=== PATIENT | male | born 1965 | race Two or more races ===

== ENCOUNTER 2021-02-04 00:19 | Emergency (ER) | payer SELFPAY ==
[2021-02-04] VITALS (7 sets, daily range): BP systolic 89–124; BP diastolic 58–77; PULSE 70–92; RESP 14–20; TEMP 36.4–36.6; O2SAT 96–100; BMI 25.1
--- NOTE | 2021-02-04 | ECG_ITS ---
Test Reason : HYPERGLYCEMIA Blood Pressure : / mmHG Vent. Rate : 074 BPM Atrial Rate : 074 BPM P-R Int : 138 ms QRS Dur : 088 ms QT Int : 376 ms P-R-T Axes : 055 014 032 degrees QTc Int : 417 ms Normal sinus rhythm Normal ECG No previous ECGs available Referred By: Generic ED Physician Electronically Signed By:HARSHAD ROJAS MD
--- NOTE | ~2021-02-04 | CT_ITS ---
EXAMINATION: CT HEAD W/O IV CONTRAST CT CERVICAL SPINE W/O IV CONTRAST CLINICAL INFORMATION: Fall and head injury. COMPARISON: None TECHNIQUE: Head - Contiguous axial imaging of the head was performed from the skull base to the vertex without the administration of intravenous contrast, and axial images are reconstructed at 2 mm and 5 mm slice thickness. Cervical spine - A volumetric, helical CT acquisition of the cervical spine was obtained without contrast; in addition to the standard set of axial images, multiplanar reformatted images were provided in the coronal and sagittal imaging planes. This CT examination was performed using dose optimization techniques as appropriate, variously including the following: *Automated exposure control *Adjustment of mA and/or kV according to patient size (this includes techniques or standardized protocols for targeted exams where dose is matched to indication/reason for exam; i.e. extremities or head) *Use of iterative reconstruction technique DLP: 1261 mGy-cm (total) FINDINGS: HEAD: Atherosclerotic calcification of cavernous carotid arteries and right vertebral artery. Patchy and confluent hypoattenuation within supratentorial white matter is compatible with sequela of chronic moderate microangiopathy. The whiting-white matter differentiation is maintained. No evidence of an acute major vascular territory infarction, intracranial hemorrhage, extra-axial fluid collection, focal mass effect or midline shift. Mild parenchymal volume loss with commensurate prominence of ventricles and sulci; no hydrocephalus. The brainstem and cerebellum are unremarkable. There is mild thickening of the galea aponeurotica of the posterior scalp; the chronicity of this is uncertain. Given history of fall and head injury, this might represent recent onset hematoma. No calvarial fracture. The paranasal sinuses, mastoid air cells and middle ear cavities are well aerated. The orbits and globes are unremarkable. The temporomandibular joints are normal. CERVICAL SPINE: The craniocervical junction is normal. The occipital condyles, dens and atlantodental articulation are intact. The vertebral body heights and alignment are maintained. No fractures in the anterior or posterior elements. No prevertebral soft tissue swelling. Moderate degenerative loss of disc space, endplate irregularity, vertebral osteophyte formation and uncovertebral joint hypertrophy at C5-C6 and C6-C7. The uncovertebral joint hypertrophy causes moderate-to severe right-sided neural foraminal stenosis at C5-C6 and C6-C7. There is moderate left-sided neural foraminal stenosis at C6-C7. At C4-C5, there appears to be a central disc herniation that indents the ventral surface of the thecal sac and narrows the central spinal canal to approximately 0.6 cm AP dimension. Posterior disc-osteophyte complexes cause eccentric stenosis of the central spinal canal at C5-C6 and C6-C7. There is somewhat patchy hyperdense tissue thickening in the subcutaneous compartment of the posterior neck. This has the appearance of edema and hemorrhage within the subcutaneous tissues, but there is no focal discrete collection. The lung apices are unremarkable. Thyroid gland is normal. CT/CT cervical spine wo con IMPRESSION: * The thickening of the galea aponeurotic of the posterior scalp could represent acute scalp hematoma. The underlying calvarium is intact and there is no intracranial hemorrhage. * The patchy and confluent hypoattenuation within supratentorial matter is compatible with sequela of chronic moderate microangiopathy. * No acute fracture or malalignment of the degenerated cervical spine. There is degenerative disease, central canal stenosis and neural foraminal stenosis at C5-C6 and C6-C7. * There appears to be edema and hemorrhage in the subcutaneous compartment of the posterior neck.
[2021-02-04 00:38] LABS: Glucose, Whole Blood 314 mg/dL (60-115)
[2021-02-04] MEDS: 0.9 % Sodium Chloride 1,000 ML 999 ML IV (00:59)
[2021-02-04 01:00] LABS: MANUAL DIFF FLAG NO
[2021-02-04 01:01] LABS: Basophils Percent Auto 0.2 % (0-2); Eosinophils Absolute Auto 0.2 X10*3/uL (0.0-0.4); Eosinophils Percent Auto 2.2 % (0-4); Hematocrit 42.2 % (42.0-52.0); Hemoglobin 14.8 g/dl (14.0-18.0); Imm Gran Abs Auto 0.03 X10*3/uL (0.00-0.03); Imm Gran Pct Auto 0.4 % (0.0-0.4); Lymphocytes Percent Auto 24.5 % (20-40); Mean Corpuscular HGB Conc 35.1 g/dl (31.0-36.0); Mean Corpuscular Hemoglobin 31.9 pg (27.0-33.0); Mean Corpuscular Volume 90.9 fL (80.0-98.0); Mean Platelet Volume 9.8 fL (9.4-12.4); Monocytes Absolute Auto 0.6 X10*3/uL (0.1-1.2); Monocytes Percent Auto 7.8 % (2-11); Neutrophils Absolute Auto 5.2 x10*3/uL (2.0-8.3); Neutrophils Percent Auto 64.9 % (45-73); Platelet Count 211 X10*3/uL (160-400); Red Blood Count 4.64 X10*6/uL (4.60-5.80); Red Cell Distribution Width 12.1 % (11.0-16.0); White Blood Count 8.1 X10*3/uL (4.8-10.8)
[2021-02-04 01:23] LABS: Acetone, serum QL Negative (Negative)
[2021-02-04 01:31] LABS: Alanine Aminotransferase 17 U/L (0-40); Albumin Level 4.1 g/dL (3.5-5.0); Alkaline Phosphatase 134 U/L (39-117); Anion Gap 14 (12-20); Aspartate Amino Transferase 13 U/L (5-37); Bilirubin Total 0.7 mg/dL (0.0-1.0); Blood Urea Nitrogen 19 mg/dL (9-16); Calcium 9.8 mg/dL (8.4-10.2); Carbon Dioxide 23 mmol/L (22-29); Chloride 105 mmol/L (96-108); Creatinine Clr Calc Pharmacy 44.8; Estimated Glomerular Filt Rate 37; Glucose Random 421 mg/dL (60-115); Sodium 138 mmol/L (135-145); Total Protein 6.9 g/dL (6.5-8.0)
--- NOTE | 2021-02-04 07:10 | ED_ITS ---
HPI - General Adult General Chief complaint: Fall Stated complaint: FALL W/HEAD STRIKE & LOC, -THINNERS,+CCOLLAR Time Seen by Provider: 02/04/21 07:08 Source: patient and EMS Mode of arrival: EMS Limitations: no limitations History of Present Illness HPI narrative: 55-year-old male brought in by ambulance for evaluation after falling. Patient was eating his dinner when he stood up lost his balance and fell down patient declined any dizziness or lightheadedness or LOC before he fell down, patient fell backward hit his head and neck questionable few seconds of LOC. Patient with history of CVA and mild left hemiparesis patient is functioning normally, patient declined any slurred speech, no weakness, no numbness, steady gait. Patient is diabetic control his diabetes with insulin did not take his insulin yet, patient declined using anticoagulation. Related Data Allergies Allergy/AdvReac Type Severity Reaction Status Date / Time No Known Allergies Allergy Verified 02/04/21 07:09 Review of Systems Review of Systems: All other systems are reviewed and are negative Constitutional: Reports as per HPI and Reports no additional constitutional complaints Eyes: Reports as per HPI and Reports no additional eye complaints Reports system reviewed and no additional complaints, except as documented Cardiovascular: Reports as per HPI and Reports no additional cardiovascular complaints Respiratory: Reports as per HPI and Reports no additional respiratory complaints Gastrointestinal: Reports as per HPI and Reports no additional gastrointestinal complaints Genitourinary: Reports no additional female genitourinary complaints Musculoskeletal: Reports no additional musculoskeletal complaints Skin/Breast: Reports system reviewed and no additional complaints, except as docu Psychiatric: Reports no additional psychiatric complaints Endocrine: Reports no additional endocrine complaints Hematologic/Lymphatic: Reports no additional hematologic/lymphatic complaints Allergic/Immunologic: Reports no additional allergic/immunologic complaints Reports system reviewed and no additional complaints, except as documented and Reports Abnormal speech present [facility] Social History Social History Advance Directives: No Advance Directives Information Provided: No Physical Exam Vital Signs: Vital Signs: Last Vital Signs Temp 97.9 F 02/04/21 06:30 Pulse 70 02/04/21 10:33 Resp 16 02/04/21 10:33 BP 114/77 02/04/21 10:33 Pulse Ox 99 02/04/21 10:33 BMI result Body Mass Index 25.1 Vital signs have been reviewed as appeared to be correct. Blood pressure normal. Heart rate normal. Respiration rate normal. Temperature normal. Oxygen saturation normal. Appearance: Alert. Oriented X3. No acute distress. Head: Normal external exam. Normocephalic. Small hematoma in the occipital region No Cornelius signs noted. No raccoon eyes noted Eyes: PERRLA. EOMI. Conjunctiva and sclera normal. Eyelids normal. ENT: TM's Normal. Pharynx normal. Uvula midline. Moist mucous membranes. No trismus noted. No drooling noted. No muffled voice noted. Neck: Normal inspection. Neck supple. FROM. No adenopathy. Cervical spine with no step-off, no deformity Thyroid Normal. No meningeal signs. No neck mass noted. CVS: Normal heart rate and rhythm. Heart sound normal. No murmurs noted. Pulses normal throughout. Respiratory: No respiratory distress. Painless inspiration. Breath sounds normal. No wheezes/rales/rhonchi noted. Chest nontender. No accessory muscle usage noted or decreased air movement noted. Abdomen: Soft and nontender. Bowel sounds normal in all 4 quadrants. No distention noted. No organomegaly noted. No visible injury noted. Back: No CVA tenderness. Full range of motion noted. Skin: Skin warm and dry. Normal skin color. Normal skin turgor. No rashes/lesions/lacerations noted. Extremities: No lower extremity edema. Extremities exhibit normal range of motion. Extremities nontender. Neuro: Oriented X 3. Cranial nerve exam: II-XII are grossly intact No motor deficit. No sensory deficit. Reflexes normal. NIH Stroke Scale Level of Consciousness: Alert Level of Consciousness Questions: Answers both questions correctly Level of Consciousness Commands: Performs both tasks correctly Best Gaze: Normal Visual: No visual loss Facial Palsy: Normal Motor Arm (Right): No drift Motor Arm (Left): No drift Motor Leg (Right): No drift Motor Leg (Left): No drift Limb Ataxia: Absent Sensory: Normal Best Language: No aphasia Dysarthia: Normal Extinction and Inattention: No abnormality Score: 0 Course Course Course Narrative: Assessment and plan. 55-year-old male came in for evaluation after having a mechanical fall with que stionable short time of LOC, patient neurologically intact, CT show no acute pathology but small occipital hematoma extending to the soft tissue of the neck, patient clinically evaluated, small size hematoma to the occipital area with some soft tissue puffiness to the of the upper neck, ice was applied to the area and patient was put into observation to make sure hematoma is not expanding. Patient also is diabetic control with insulin blood sugar is elevated been giving insulin and IV fluids. Reevaluation(s) Reevaluation #1: Repeat exam to the occipital hematoma and upper neck hematoma there is no expansion. Patient is awake alert and oriented x3, patient was educated to observes hematoma. Time: 10:03 Medical Decision Making Medical Records Medical records reviewed: Yes I reviewed the patient's medical records. Lab Data Lab results reviewed: Yes I reviewed the patient's lab results. Result diagrams: 02/04/21 00:54 02/04/21 00:54 Labs: Lab Results 02/04/21 02/04/21 02/04/21 Range/Units 00:31 00:54 00:54 WBC 8.1 (4.8-10.8) X10*3/uL RBC 4.64 (4.60-5.80) X10*6/uL Hgb 14.8 (14.0-18.0) g/dl Hct 42.2 (42.0-52.0) % MCV 90.9 (80.0-98.0) fL MCH 31.9 (27.0-33.0) pg MCHC 35.1 (31.0-36.0) g/dl RDW 12.1 (11.0-16.0) % Plt Count 211 (160-400) X10*3/uL MPV 9.8 (9.4-12.4) fL Immature Gran % (Auto) 0.4 (0.0-0.4) % Neut % (Auto) 64.9 (45-73) % Lymph % (Auto) 24.5 (20-40) % [place] % (Auto) 7.8 (2-11) % Eos % (Auto) 2.2 (0-4) % Baso % (Auto) 0.2 (0-2) % Lymph # (Auto) 2.0 (1.2-4.9) X10*3/uL [place] # (Auto) 0.6 (0.1-1.2) X10*3/uL Eos # (Auto) 0.2 (0.0-0.4) X10*3/uL Baso # (Auto) 0.0 (0.0-0.2) X10*3/uL Abs Immat Gran (auto) 0.03 (0.00-0.03) X10*3/uL Absolute Neuts (auto) 5.2 (2.0-8.3) x10*3/uL Absolute Nucleated RBC 0.000 (0.0-0.012) X10*3/uL Nucleated RBC % (auto) 0.0 (0.0-0.2) /100WBC Sodium 138 (135-145) mmol/L Potassium 4.0 (3.3-5.1) mmol/L Chloride 105 (96-108) mmol/L Carbon Dioxide 23 (22-29) mmol/L Anion Gap 14 (12-20) BUN 19 H (9-16) mg/dL Creatinine 1.92 H (0.5-1.4) mg/dL Estim Creat Clear Calc 44.8 Estimated GFR 37 POC Glucose 314 H (60-115) mg/dL Random Glucose 421 H* (60-115) mg/dL Calcium 9.8 (8.4-10.2) mg/dL Total Bilirubin 0.7 (0.0-1.0) mg/dL AST 13 (5-37) U/L ALT 17 (0-40) U/L Alkaline Phosphatase 134 H (39-117) U/L Total Protein 6.9 (6.5-8.0) g/dL Albumin 4.1 (3.5-5.0) g/dL Acetone, Qual Negative (Negative) 02/04/21 02/04/21 Range/Units 07:50 09:32 WBC (4.8-10.8) X10*3/uL RBC (4.60-5.80) X10*6/uL Hgb (14.0-18.0) g/dl Hct (42.0-52.0) % MCV (80.0-98.0) fL MCH (27.0-33.0) pg MCHC (31.0-36.0) g/dl RDW (11.0-16.0) % Plt Count (160-400) X10*3/uL MPV (9.4-12.4) fL Immature Gran % (Auto) (0.0-0.4) % Neut % (Auto) (45-73) % Lymph % (Auto) (20-40) % [place] % (Auto) (2-11) % Eos % (Auto) (0-4) % Baso % (Auto) (0-2) % Lymph # (Auto) (1.2-4.9) X10*3/uL [place] # (Auto) (0.1-1.2) X10*3/uL Eos # (Auto) (0.0-0.4) X10*3/uL Baso # (Auto) (0.0-0.2) X10*3/uL Abs Immat Gran (auto) (0.00-0.03) X10*3/uL Absolute Neuts (auto) (2.0-8.3) x10*3/uL Absolute Nucleated RBC (0.0-0.012) X10*3/uL Nucleated RBC % (auto) (0.0-0.2) /100WBC Sodium (135-145) mmol/L Potassium (3.3-5.1) mmol/L Chloride (96-108) mmol/L Carbon Dioxide (22-29) mmol/L Anion Gap (12-20) BUN (9-16) mg/dL Creatinine (0.5-1.4) mg/dL Estim Creat Clear Calc Estimated GFR POC Glucose 401 H* 326 H (60-115) mg/dL Random Glucose (60-115) mg/dL Calcium (8.4-10.2) mg/dL Total Bilirubin (0.0-1.0) mg/dL AST (5-37) U/L ALT (0-40) U/L Alkaline Phosphatase (39-117) U/L Total Protein (6.5-8.0) g/dL Albumin (3.5-5.0) g/dL Acetone, Qual (Negative) Imaging Data CT scan - head: Attestation: I personally reviewed and interpreted this imaging study as follows: Radiologist's impression: ? The thickening of the galea aponeurotic of the posterior scalp could represent acute scalp hematoma. The underlying calvarium is intact and there is no intracranial hemorrhage. *? The patchy and confluent hypoattenuation within supratentorial matter is compatible with sequela of chronic moderate microangiopathy. Cervical spine CT: Radiologist's impression: ? No acute fracture or malalignment of the degenerated cervical spine. There is degenerative disease, central canal stenosis and neural foraminal stenosis at C5-C6 and C6-C7. *? There appears to be edema and hemorrhage in the subcutaneous compartment of the posterior neck. ECG Data Attestation: I personally reviewed and interpreted this ECG as follows: Interpretation: Normal sinus rhythm at 74 beats per minute, normal intervals, no ST-T changes. Discharge Plan Discharge Clinical Impression: Fall, Hyperglycemia due to diabetes mellitus, Hematoma of scalp Patient Disposition: Home, Self-Care Instructions: Scalp Contusion in Adults (ED), Diabetic Hyperglycemia (ED) Referrals: Physician,Unknown J [Primary Care Provider] - 2 days
[2021-02-04 07:53] LABS: Glucose, Whole Blood 401 mg/dL (60-115)
[2021-02-04] MEDS: Insulin Regular, Human 100 UNIT/ML 3 ML VIAL 10 UNIT IVPUSH (07:57)
--- NOTE | 2021-02-04 09:34 | PC.NURSE ---
patient sleeping, awakens easily to verbal stimuli. skin pwd, resp even and non labored. alert, speaking in full, clear sentences. nsr via tele. New ice pack applied to hematoma and back of head that travels to mid neck, does not appear worse at this time. Patient states pain remains a 4/10. repeat blood sugar completed, remains high at 326. physician aware
[2021-02-04 09:40] LABS: Glucose, Whole Blood 326 mg/dL (60-115)
[2021-02-04] MEDS: 0.9 % Sodium Chloride 1,000 ML 999 ML IVCONT (10:34)
[2021-02-04] MEDS: Insulin Regular, Human 100 UNIT/ML 3 ML VIAL IVPUSH (10:35)
[2021-02-04 11:20] LABS: Glucose, Whole Blood 241 mg/dL (60-115)
== END 2021-02-04 11:53 | disposition home or self-care (01) ==
PROVIDERS: Emergency Provider Emergency Medicine
DX: S00.03XA Contusion of scalp, initial encounter (principal); W01.0XXA Fall on same level from slipping, tripping and stumbling without subsequent striking against object, initial encounter; E11.65 Type 2 diabetes mellitus with hyperglycemia; Z79.4 Long term (current) use of insulin; Z86.73 Personal history of transient ischemic attack (TIA), and cerebral infarction without residual deficits; Y93.89 Activity, other specified; Y92.019 Unspecified place in single-family (private) house as the place of occurrence of the external cause; Y99.9 Unspecified external cause status
CPT/HCPCS: 36415; 70450; 72125; 80053; 82009; 82947; 85025; 87086; 93005; 96361; 96374; 96376; 99285

== ENCOUNTER 2021-03-14 18:42 | Emergency (ER) | payer OTHER, SELFPAY ==
[2021-03-14 19:17] VITALS: BP 140/79; PULSE 89; RESP 16; TEMP 36.8; O2SAT 100; BMI 22.9
[2021-03-14 20:32] VITALS: BP 140/87; PULSE 89; RESP 18; TEMP 36.5; O2SAT 100
--- NOTE | 2021-03-14 20:37 | ED_ITS ---
HPI - Skin/Abscess/Foreign Bdy General Chief complaint: Skin/Abscess/Foreign Body Stated complaint: boil on back Time Seen by Provider: 03/14/21 23:01 Source: patient Mode of arrival: ambulatory Limitations: no limitations History of Present Illness HPI narrative: 55-year-old male presents with lump to the mid upper back. States that he has a significant history of abscesses and boils and that all of his family members have the same problem. Does not report any fevers or chills, but states to feel weak at this time. MD complaint: abscess/boil Onset (ago): week(s) Tetanus up to date: no Location: back Severity: moderate Severity scale (1-10): 6 Quality: aching Pain Consistency: constant Relieving factors: none Exacerbating factors: palpation and movement Context: none Associated symptoms: denies other symptoms Treatments prior to arrival: attempted to drain pus at home Related Data Previous Rx's Medication Instructions Recorded doxycycline monohydrate 100 mg 100 mg PO BID 10 Days #20 cap 03/14/21 capsule Allergies Allergy/AdvReac Type Severity Reaction Status Date / Time No Known Allergies Allergy Verified 02/04/21 07:09 Review of Systems Verdana 4l Review of Systems: Verdana 4d Verdana 4d Constitutional: No Fever, No Chills ENT/Mouth: No Ear Pain, No Hoarseness, No sore throat Eyes: No Eye Pain, No Swelling, No Redness, No Foreign Body Cardiovascular: No Chest Pain, No SOB Respiratory: No Cough, No Dyspnea GastrointestinalGastrointestinal: No Nausea, No Vomiting, No Diarrhea, No abdominal Pain Genitourinary: No Dysuria, No Hematuria Musculoskeletal: positive back pain due to abscess, No Myalgias, No Joint Swelling Skin: No Skin lacerations, No rash Neuro: No Weakness, No Numbness, No Paresthesias, No Loss of Consciousness, No Dizziness, No Headache Psych: No Anxiety/Panic, No Depression Heme/Lymph: no easy bruising, no Lymphadenopathy Endocrine: No Polyuria, No Polydipsia Yes all other systems are reviewed and are negative [facility] Past Medical History Attestation statement: The following information was validated with the patient. Source: old records reviewed Medical History Brainstem lesion Diabetes Stroke Social History Social History Advance Directives: No Advance Directives Information Provided: No Physical Exam Verdana 4l Vital Signs: Verdana 4d Verdana 4d Vital Signs: Verdana 4d Verdana 4Bd Last Vital Signs Verdana 4d Portfolio Assistant New 4d Portfolio Assistant New 4d Temp 97.7 F 03/14/21 20:32 Portfolio Assistant New 4d Pulse 89 03/14/21 20:32 Portfolio Assistant New 4d Resp 18 03/14/21 20:32 BP 140/87 H 03/14/21 20:32 Pulse Ox 100 03/14/21 20:32 BMI result Body Mass Index 22.9 Appearance: Alert. Oriented X3. No acute distress. Eyes: Pupils equal, round and reactive to light. ENT: Pharynx normal. Neck: Normal inspection. Neck supple. CVS: Normal heart rate and rhythm. Pulses normal. Respiratory: No respiratory distress. Breath sounds normal. Abdomen: Soft and nontender. Skin: Abscess to the right mid upper back. No erythema. Skin warm and dry. Normal skin color. Normal skin turgor. Extremities: No lower extremity edema. Gait well-balanced and well coordinated. Neuro: No motor deficit. No sensory deficit. Cranial nerves 2-12 intact Course Course Course Narrative: 55-year-old male presents with recurrent abscesses to his back. Patient is afebrile, appears nontoxic. Second complaint is ear pain. Bilateral tympanic membranes intact no indication of otitis media or externa. I&D of abscess. Please refer to procedure note. Patient tolerated procedure well. Will treat with doxycycline and have patient follow-up with Dr. Amador. Patient verbalized understanding of and agrees to plan of care discharge home. MDM - Skin/Abscess/Foreign Bdy Differential Diagnosis Differential diagnosis: Likely abscess of skin or subcutaneous tissue Medical Records Attestation: I reviewed the patient's medical records. Lab Data Attestation: I reviewed the patient's lab results. Result diagrams: 03/14/21 21:33 03/14/21 21:33 Labs: Lab Results 03/14/21 03/14/21 03/14/21 Range/Units 21:33 21:33 21:33 WBC 8.2 (4.8-10.8) X10*3/uL RBC 4.39 L (4.60-5.80) X10*6/uL Hgb 13.9 L (14.0-18.0) g/dl Hct 40.5 L (42.0-52.0) % MCV 92.3 (80.0-98.0) fL MCH 31.7 (27.0-33.0) pg MCHC 34.3 (31.0-36.0) g/dl RDW 12.0 (11.0-16.0) % Plt Count 212 (160-400) X10*3/uL MPV 9.8 (9.4-12.4) fL Immature Gran % (Auto) 0.2 (0.0-0.4) % Neut % (Auto) 67.6 (45-73) % Lymph % (Auto) 22.9 (20-40) % [place] % (Auto) 7.1 (2-11) % Eos % (Auto) 1.8 (0-4) % Baso % (Auto) 0.4 (0-2) % Lymph # (Auto) 1.9 (1.2-4.9) X10*3/uL [place] # (Auto) 0.6 (0.1-1.2) X10*3/uL Eos # (Auto) 0.2 (0.0-0.4) X10*3/uL Baso # (Auto) 0.0 (0.0-0.2) X10*3/uL Abs Immat Gran (auto) 0.02 (0.00-0.03) X10*3/uL Absolute Neuts (auto) 5.5 (2.0-8.3) x10*3/uL Absolute Nucleated RBC 0.000 (0.0-0.012) X10*3/uL Nucleated RBC % (auto) 0.0 (0.0-0.2) /100WBC Sodium 139 (135-145) mmol/L Potassium 4.7 (3.3-5.1) mmol/L Chloride 105 (96-108) mmol/L Carbon Dioxide 28 (22-29) mmol/L Anion Gap 11 L (12-20) BUN 20 H (9-16) mg/dL Creatinine 1.42 H (0.5-1.4) mg/dL Estim Creat Clear Calc 60.3 Estimated GFR 52 Random Glucose 233 H D (60-115) mg/dL Calcium 10.0 (8.4-10.2) mg/dL COVID-19 ([facility]IZ[facility]ETH) Negative (Negative) COVID-19 Clin Com See Note Procedures Abscess I/D Site: back Side (if applicable): right Local Anesthetic: lidocaine 2% Amount of anesthesia used (mL): 4 Technique: incised with blade Amount of fluid expressed (mL): 7 Sent for culture/gram staining?: Yes Irrigation: No Packing used?: [email or web address] Discharge Plan Discharge Clinical Impression: Abscess of skin or subcutaneous tissue, Encounter for incision and drainage procedure Patient Disposition: Home, Self-Care Instructions: Abscess (ED), Abscess Follow-up (ED), Abscess Incision and Drainage (DC), Incision and Drainage (ED) Additional Instructions: You were evaluated for recurrent abscess to your back. We incised and drained this abscess. Please keep the dressing in place for 3 days. Please return in 3 days for packing. You can return to this emergency department, urgent care or primary care physician. You may consider following up with Dr. Amador, he is a general surgeon. Please take doxycycline 100 mg every 12 hours for the next 10 days. Do not soak in a tub or exposed the incision to water for prolonged periods of time. Thank you for choosing this emergency department for evaluation. Please follow-up with primary care physician as needed. Return to the emergency department for any new, concerning, or worsening symptoms. Prescriptions: New doxycycline monohydrate 100 mg capsule 100 mg PO BID 10 Days Qty: 20 0RF Referrals: Rasheed Amador MD [Physician] - 2 days (Recurrent back abscess) Interventions: ED Discharge Assessment Last Done: 03/14/21 23:21 Discharge Date/Time: 03/14/21 23:25
[2021-03-14] MEDS: Diphth,Pertus(ACell),Tet Adult 0.5 ML SYRINGE IM (20:51)
[2021-03-14 21:40] LABS: MANUAL DIFF FLAG NO
[2021-03-14 21:42] LABS: Basophils Percent Auto 0.4 % (0-2); Eosinophils Absolute Auto 0.2 X10*3/uL (0.0-0.4); Eosinophils Percent Auto 1.8 % (0-4); Hematocrit 40.5 % (42.0-52.0); Hemoglobin 13.9 g/dl (14.0-18.0); Imm Gran Abs Auto 0.02 X10*3/uL (0.00-0.03); Imm Gran Pct Auto 0.2 % (0.0-0.4); Lymphocytes Absolute Auto 1.9 X10*3/uL (1.2-4.9); Lymphocytes Percent Auto 22.9 % (20-40); Mean Corpuscular HGB Conc 34.3 g/dl (31.0-36.0); Mean Corpuscular Hemoglobin 31.7 pg (27.0-33.0); Mean Corpuscular Volume 92.3 fL (80.0-98.0); Mean Platelet Volume 9.8 fL (9.4-12.4); Monocytes Absolute Auto 0.6 X10*3/uL (0.1-1.2); Monocytes Percent Auto 7.1 % (2-11); Neutrophils Absolute Auto 5.5 x10*3/uL (2.0-8.3); Neutrophils Percent Auto 67.6 % (45-73); Platelet Count 212 X10*3/uL (160-400); Red Blood Count 4.39 X10*6/uL (4.60-5.80); White Blood Count 8.2 X10*3/uL (4.8-10.8)
[2021-03-14 21:56] LABS: COVID-19 Test Negative (Negative); IDNOW Serial# 55D5AD1C
[2021-03-14 21:58] LABS: Anion Gap 11 (12-20); Blood Urea Nitrogen 20 mg/dL (9-16); Carbon Dioxide 28 mmol/L (22-29); Chloride 105 mmol/L (96-108); Creatinine Clr Calc Pharmacy 60.3; Estimated Glomerular Filt Rate 52; Glucose Random 233 mg/dL (60-115); Potassium 4.7 mmol/L (3.3-5.1); Sodium 139 mmol/L (135-145)
== END 2021-03-14 23:25 | disposition home or self-care (01) ==
PROVIDERS: Nurse Practitioner Family; Emergency Provider Emergency Medicine
DX: L02.212 Cutaneous abscess of back [any part, except buttock and flank] (principal); Z20.822 Contact with and (suspected) exposure to COVID-19; E11.9 Type 2 diabetes mellitus without complications
CPT/HCPCS: 10060; 80048; 85025; 87071; 87205; 87635; 90471; 90715; 99284

== ENCOUNTER 2021-03-18 19:11 | Emergency (ER) | payer OTHER, SELFPAY ==
[2021-03-18 19:14] VITALS: BP 136/86; PULSE 97; RESP 18; TEMP 36.6; O2SAT 99; BMI 23.9
--- NOTE | 2021-03-18 20:30 | ED_ITS ---
HPI - Skin/Abscess/Foreign Bdy General Chief complaint: Skin/Abscess/Foreign Body Stated complaint: follow up from previous visit, lac? Time Seen by Provider: 03/18/21 20:30 Source: patient Mode of arrival: ambulatory Limitations: no limitations History of Present Illness HPI narrative: This is a 55-year-old male presenting to the emergency department for packing removing, patient was assessed in the emergency department on March 14, 2021 where he had an abscess of the skin To his back, he tells me that he gets these frequently and they are recurrent.. He was put on doxycycline for this abscess. And he was told to come back for packing removal. He denies any overlying skin changes, warmth, discharge, fevers, chills. No signs of evident infection. Patient was told to follow-up with Dr. Amador however he has not followed up with Dr. Amador yet . He has an appointment on of this week with him. Patient has no other complaints and tells me that he is feeling well. He is currently taking doxycycline 100 mg p.o. b.i.d. in tells me still has a few doses left. MD complaint: other (Abscess) Location: back Relieving factors: none Exacerbating factors: none Context: none Associated symptoms: denies other symptoms Treatments prior to arrival: none Related Data Previous Rx's Medication Instructions Recorded doxycycline monohydrate 100 mg 100 mg PO BID 10 Days #20 cap 03/14/21 capsule Allergies Allergy/AdvReac Type Severity Reaction Status Date / Time No Known Allergies Allergy Verified 03/18/21 19:14 Review of Systems Verdana 4l Review of Systems: Verdana 4d Verdana 4d Constitutional : No Fever, No Chills, Cardiovascular : No Chest Pain, No SOB Respiratory : No Dyspnea Gastrointestinal : No abdominal pain Musculoskeletal : No Joint Swelling Skin : No rash, positive abscess (healing) Neuro : No WeaknessWeakness, No Numbness Psych : No SI/HI Yes all other systems are reviewed and are negative PMFSH Past Medical History Attestation statement: The following information was validated with the patient. Source: old records reviewed and nursing notes reviewed Medical History Brainstem lesion Diabetes Stroke Social History Social History Advance Directives: No Advance Directives Information Provided: Yes Physical Exam Verdana 4l Vital Signs: Verdana 4d Verdana 4d Vital Signs: Verdana 4d Verdana 4Bd Last Vital Signs Verdana 4d Assistant Merchandiser New 4d Assistant Merchandiser New 4d Temp 97.9 F 03/18/21 19:14 Assistant Merchandiser New 4d Pulse 97 03/18/21 19:14 Assistant Merchandiser New 4d Resp 18 03/18/21 19:14 BP 136/86 03/18/21 19:14 Pulse Ox 99 03/18/21 19:14 BMI result Body Mass Index 23.9 vital signs stable. Appearance: Alert.? Oriented X3.? No acute distress.? Head: Normocephalic, atraumatic, no step-offs or deformities Eyes: Pupils equal, round and reactive to light.? ENT: Pharynx normal.? Neck: Normal inspection.? Neck supple.? CVS: Normal heart rate and rhythm.? Pulses normal.? Respiratory: No respiratory distress.? Breath sounds normal.? Abdomen: Soft and nontender.? Skin: Skin warm and dry.? Normal skin color.? Normal skin turgor.?+well healing abscess no erythema or calor, no discharge from the area. Extremities: No lower extremity edema.? No calf ttp. 5/5 strength to bilateral upper and lower extremities Back: No midline tenderness, no C-spine tenderness, full range of motion, no CVA tenderness bilaterally Neuro: Oriented X 3.? No motor deficit.? No sensory deficit. Course Reevaluation(s) Reevaluation #1: Packing was successfully removed. Area with out discharge. Patient tolerated well. No overlying erythema or warmth. Patient has follow-up with Dr. Hlal is on . He still has a few doses of his doxycycline left. Patient has no complaints and is feeling well. I have advised him that it is very important for him to follow-up with Dr. Hall as as he gets recurrent abscesses. Comfortable discharge home. Gave him warning signs of infection and advised him to return with any of these warning signs. These were outlined on his discharge. Time: 21:05 MDM - Skin/Abscess/Foreign Bdy [facility] Narrative Medical decision making narrative: 2054 55 yo m presents for packing removal to an abscess on his lower back. No complaints. Denies signs of infection. Scheduled to see Dr. Amador for recurrent abscess formation. PE benign Plan- packing removal. Medical Records Attestation: I reviewed the patient's medical records. Lab Data Attestation: I reviewed the patient's lab results. Critical Care Time Critical Care Time Critical Care Time: No Discharge Plan Discharge Clinical Impression: Abscess packing removal Patient Disposition: Home, Self-Care Additional Instructions: Take your medications as prescribed. Please finish the antibiotics that were previously prescribed to you. Follow-up with your primary care provider this week. It is important that you follow-up with General surgery as he mentioned to me of an appointment on , it is important that you attend this appointment. Return to the emergency department with new or worsening symptoms. Such as fevers, chills, nausea, vomiting, redness over the area, discharge from the area, pain or any new Abscesses. In case of emergency call 911 Prescriptions: No Action doxycycline monohydrate 100 mg capsule 100 mg PO BID 10 Days Qty: 20 0RF Referrals: Physician,Unknown J [Primary Care Provider] - 2 days
== END 2021-03-18 21:10 | disposition home or self-care (01) ==
PROVIDERS: Emergency Provider Internal Medicine
DX: Z48.01 Encounter for change or removal of surgical wound dressing (principal)
CPT/HCPCS: 99284

== ENCOUNTER → 2021-03-23 15:02 | Outpatient (BNVA) | payer OTHER, SELFPAY | PROVIDERS: Visit Provider Surgery | DX: L02.91 Cutaneous abscess, unspecified (principal) | CPT/HCPCS: 99202 ==

== ENCOUNTER 2021-06-17 13:09 | Emergency (ER) | payer OTHER, SELFPAY ==
[2021-06-17 13:20] VITALS: BP 122/83; PULSE 105; RESP 20; TEMP 37.6; O2SAT 100; BMI 22.9
[2021-06-17 13:40] LABS: MANUAL DIFF FLAG NO
[2021-06-17 13:41] LABS: Basophils Percent Auto 0.2 % (0-2); Eosinophils Percent Auto 0.1 % (0-4); Hematocrit 44.5 % (42.0-52.0); Imm Gran Abs Auto 0.03 X10*3/uL (0.00-0.03); Imm Gran Pct Auto 0.3 % (0.0-0.4); Lymphocytes Absolute Auto 0.7 X10*3/uL (1.2-4.9); Lymphocytes Percent Auto 7.1 % (20-40); Mean Corpuscular HGB Conc 33.7 g/dl (31.0-36.0); Mean Corpuscular Hemoglobin 31.7 pg (27.0-33.0); Mean Corpuscular Volume 94.1 fL (80.0-98.0); Mean Platelet Volume 9.7 fL (9.4-12.4); Neutrophils Absolute Auto 8.5 x10*3/uL (2.0-8.3); Neutrophils Percent Auto 82.3 % (45-73); Platelet Count 190 X10*3/uL (160-400); Red Blood Count 4.73 X10*6/uL (4.60-5.80); Red Cell Distribution Width 12.2 % (11.0-16.0); White Blood Count 10.3 X10*3/uL (4.8-10.8)
[2021-06-17 14:01] LABS: Anion Gap 16 (12-20); Blood Urea Nitrogen 22 mg/dL (9-16); Calcium 9.3 mg/dL (8.4-10.2); Carbon Dioxide 24 mmol/L (22-29); Chloride 101 mmol/L (96-108); Estimated Glomerular Filt Rate 43; Glucose Random 345 mg/dL (60-115); Potassium 3.9 mmol/L (3.3-5.1); Sodium 137 mmol/L (135-145)
[2021-06-17 14:22] LABS: COVID-19 Test Negative (Negative); IDNOW Serial# 16C4AD1C; Influenza A Negative (Negative); Influenza B2 Negative (Negative)
== END 2021-06-17 19:51 | disposition left against medical advice (07) ==
PROVIDERS: Physician Assistant Medical; Emergency Provider Emergency Medicine
DX: R11.10 Vomiting, unspecified (principal); Z20.822 Contact with and (suspected) exposure to COVID-19
CPT/HCPCS: 36415; 80048; 85025; 87502; 87635; 99282; 99283